=== PATIENT | female | born 2000 | race Caucasian/White ===

== ENCOUNTER 2019-09-15 08:05 | Day surgery (SDC) | payer OTHER ==
--- OUTSIDE RECORDS SUMMARY | 2019-09-15 08:07 | XMS REPORT ---
:2000 Author Organization eClinicalWorks Care Team Providers Name Role Phone Nicholas Marques Provider Role Unavailable Allergies No Known Allergies Problems Problem Type Condition Code Onset Dates Condition Status Problem Herpes simplex vulvovaginitis A60.04 Active Problem Encounter for assessment of STD Z76.89 Active exposure Problem Acute vaginitis N76.0 Active Problem Labia enlarged N90.60 Active Medications Medication Code Code Instructions Start End Status Dosage System Date Date Valacyclovir HCl [facility] [id number] 1 GM Orally Once Dec 20, Dec 15, Active 1 tablet a day 2017 2018 Results No Known Results Summary Purpose eClinicalWorks Submission
--- OUTSIDE RECORDS SUMMARY | 2019-09-15 08:07 | XMS REPORT ---
:2000 Author Organization [employer] Care Team Providers Name Role Phone Nicholas Marques Provider Role Unavailable Allergies No Known Allergies Problems Problem Type Condition Code Onset Dates Condition Status Problem Herpes simplex vulvovaginitis A60.04 Active Problem Encounter for assessment of STD Z76.89 Active exposure Problem Acute vaginitis N76.0 Active Problem Labia enlarged N90.60 Active Medications No Known Medications Results No Known Results Summary Purpose eClinicalWorks Submission
--- OUTSIDE RECORDS SUMMARY | 2019-09-15 08:07 | XMS REPORT ---
[...] Start End Status Dosage System Date Date Azithromycin [facility] [id number] 500 MG Orally May 30May Active as directed Once a day 2017 Results No Known Results Summary Purpose eClinicalWorks Submission
[2019-09-15 08:22] LABS: Specific Gravity 1.025 (1.005-1.030)
[2019-09-15] MEDS ORDERED: Ringers Lactate 1,000 ML IV ONE (08:24)
[2019-09-15] MEDS ORDERED: propofoL 200 MG/20 ML VIAL IV ONE (09:05)
[2019-09-15] MEDS ORDERED: LIDOCAINE 2% MPF 5 ML VIAL ONE (09:05)
[2019-09-15] MEDS ORDERED: dexAMETHasone 10 MG/ML VIAL ONE (09:05)
[2019-09-15] MEDS ORDERED: FENTANYL CITR 100 MCG/2 ML ONE (09:05)
[2019-09-15] MEDS ORDERED: MIDAZOLAM HCL 2 MG/2 ML INJ ONE (09:05)
[2019-09-15] MEDS ORDERED: BUPIVACA 0.5%/EPI 0.0005%/PF 10 ML VIAL ONE (09:06)
[2019-09-15] MEDS ORDERED: ONDANSETRON 4 MG/2 ML VIAL ONE ×2 (09:07→12:15)
[2019-09-15] MEDS ORDERED: OXYMETAZOLINE HCL 0.05% 15ML NAS ONE (09:16)
--- NOTE | 2019-09-15 10:35 | P.OP ---
Pre-Op Diagnosis: Chronic tonsillitis Post-Op Diagnosis: Chronic tonsillitis Procedure: Tonsillectomy Anesthesia: Other (GA via ETT) Fluids/ Blood products: Other (crystalloid, see Izabel. Record) Estimated blood loss: Other (5ml) Specimen: Other (bilateral tonsils) Complications: None Implants: None Indication: Patient persistent issues in spite of good medical management. Details of Operation: The patient was brought to the operating room and placed under general anesthesia via endotracheal tube. The head of bed was turned 90 degrees. A Shoulder roll was placed and the neck extended. A head drape was applied. The McIvor mouth gag was placed and suspended from the Pulido stand. The oxygen concentrate was confirmed with the contact lens edge buffer and was less than forty percent. Weight-based dexamethasone was administered by the contact lens edge buffer. The soft palate was palpated and there was no submucous cleft. A red rubber catheter was placed in the nose and secured to retract the soft palate. The tonsils were noted to be medium size with deep crypts and liths. The left tonsil was grasped with a straight Allis clamp. The bovie electocautery was used to incision the mucosa over the anterior pillar and identify the tonsillar capsule. The tonsil was dissected using cautery and blunt dissection until free from soft tissue attachments. A tonsil ball was placed to aid hemostasis. The right tonsil was removed in a similar manner. The laryngeal mirror was used to visualize the nasopharynx. The adenoid size was very small. The adenoids were not removed. Blood loss was minimal. All packing was removed. The tonsillar fossae were injected with 0.5% Marcaine with epinephrine. A total of 2.5 mL was used. A Salum sump orogastric tube was used to decompress the stomach. The red rubber catheter was removed and used to suction the nasopharynx and nasal cavity. The mouth gag was removed; there was no evidence of injury to the lips, teeth or tongue. The mandible was mobile. Disposition: The patient was then awakened from anesthesia and taken to the recovery room in stable condition.
[2019-09-15] MEDS ORDERED: HYDROMORPHONE HCL 1 MG/ML INJ ONE (10:55)
[2019-09-15] MEDS ORDERED: PROMETHAZINE INJ 25 MG/ML AMP ONE (10:55)
[2019-09-15 11:47] VITALS: TEMP 97.9; O2SAT 98
[2019-09-15] MEDS ORDERED: NA CHLORIDE 0.9% 500 ML ONE (12:15)
[2019-09-15] MEDS ORDERED: ONDANSETRON 4 MG/2 ML VIAL IV ONE (12:20)
[2019-09-15] MEDS ORDERED: HYDROCOD 2.5mg-ACETAMIN 108mg/5mL Soln ONE (12:22)
[2019-09-15] MEDS ORDERED: HYDROCOD 2.5mg-ACETAMIN 108mg/5mL Soln PO ONE (12:25)
[2019-09-15 13:47] VITALS: BP 126/78
== END 2019-09-15 13:00 | disposition home or self-care (01) ==
LOC: OR 08:05
PROVIDERS: ATTEND Otolaryngology
PROC: 0CTPXZZ Resection of Tonsils, External Approach (ICD-10-PCS; principal; 2019-09-15 09:15)
DX: J35.01 Chronic tonsillitis (principal); J35.8 Other chronic diseases of tonsils and adenoids; R19.6 Halitosis; Z83.3 Family history of diabetes mellitus; Z80.9 Family history of malignant neoplasm, unspecified; Z82.49 Family history of ischemic heart disease and other diseases of the circulatory system
CPT/HCPCS: 81025; 88304; 42826; J2704; J2550; J2250; J3010; J1100; J1170; J7120; J7040; J2405 ×3